=== PATIENT | female | born 1975 | race Caucasian/White ===

== ENCOUNTER 2021-08-22 15:41 | Emergency (ER) | payer OTHER ==
[~2021-08-22] VITALS: Ht 157.5 cm; Wt 86.4 kg
[2021-08-22 20:38] VITALS: BP 137/84
== END 2021-08-22 20:42 | disposition home or self-care (01) ==
LOC: EMS 15:47
DX: F32.9 Major depressive disorder, single episode, unspecified (principal)
CPT/HCPCS: 99284; Z7502